=== PATIENT | female | born 2005 | race Hispanic/Latino ===

== ENCOUNTER 2024-01-11 14:40 | Inpatient (IN) | payer MEDICAID, OTHER ==
[~2024-01-11 14:40] MED LIST: Bupivacaine 0.25% HCL 30 ML VIAL ONE
[2024-01-11 15:13] VITALS: BMI 30.2
[2024-01-11 16:05] LABS: Fetal Membranes Rupture RUPTURE DETECTED (No Rupture)
[2024-01-11] MEDS ORDERED: Lidocaine 1% (PF) 30 ML VIAL SC PRN (16:35)
[2024-01-11] MEDS ORDERED: Promethazine HCl 25 MG/ML VIAL IM PRN ×2 (16:35→19:34)
[2024-01-11] MEDS ORDERED: hydrALAZINE 20 MG/ML VIAL SLOW IVP PRN (16:35)
[2024-01-11] MEDS ORDERED: HYDROcodone/Acetaminophen 5/325 mg Tablet PO PRN (16:35)
[2024-01-11] MEDS ORDERED: Methylergonovine 0.2 MG/ML VIAL IM PRN (16:35)
[2024-01-11] MEDS ORDERED: Ibuprofen 800 MG TAB PO PRN (16:35)
[2024-01-11] MEDS ORDERED: Misoprostol 200 MCG TAB PR PRN (16:35)
[2024-01-11] MEDS ORDERED: Acetaminophen 500 MG TAB PO PRN (16:35)
[2024-01-11] MEDS ORDERED: Diphenoxylate HCl/Atropine Tablet PO PRN (16:35)
[2024-01-11] MEDS ORDERED: Tranexamic Acid 1,000 MG/10 ML VIAL IVP PRN (16:35)
[2024-01-11] MEDS ORDERED: fentaNYL 50 mcg/mL 1 mL Vial SLOW IVP PRN (16:35)
[2024-01-11] MEDS ORDERED: Ondansetron PF 4 MG/2 ML Vial IVP PRN ×2 (16:35→19:34)
[2024-01-11] MEDS ORDERED: Carboprost 250 MCG/ML AMP IM PRN (16:35)
[2024-01-11] MEDS ORDERED: Oxytocin 30 units/NS 500 ML 500 ML IV SCH (16:45)
[2024-01-11] MEDS ORDERED: Lactated Ringer's 1,000 ML IV SCH (16:45)
[2024-01-11 16:48] LABS: Hematocrit 38.8 % (34.9-44.5); Mean Corpuscular HGB CONC 33.5 g/dL (32.0-36.0); Mean Corpuscular Volume 86.6 fL (81.6-98.3); Platelet Count 230 10x3/uL (150-450); RBC Distribution Width 12.8 % (11.5-14.5); Red Blood Cell (RBC) Count 4.48 10x6/uL (3.90-5.03); White Blood Cell (WBC) Count 8.6 10x3/uL (3.5-10.5)
[2024-01-11 16:49] LABS: Mean Platelet Volume 9.9 fL (7.4-10.4)
[2024-01-11 17:20] LABS: Syphilis Antibody Nonreactive (Nonreactive); Syphilis Antibody Index 0.03 S/CO (<1.00 Non-Reactive)
[2024-01-11 17:22] LABS: HBsAg Index 0.19 S/CO (0-0.99); Hep B Surf Ag - L&D Non-Reactive S/CO (NonReactive)
[2024-01-11] MEDS ORDERED: ePHEDrine Sulfate 50 MG/10 ML VIAL SLOW IVP PRN (19:34)
[2024-01-11] MEDS ORDERED: Lactated Ringer's 500 ML IV PRN (19:34)
[2024-01-11] MEDS ORDERED: diphenhydrAMINE 50 MG/ML VIAL IVP PRN (19:34)
[2024-01-11] MEDS ORDERED: Naloxone HCl 0.4 mg/ml Vial IVP PRN ×2 (19:34)
[2024-01-11] MEDS ORDERED: Moisturizing Cream (Eucerin) 113 GM JAR TOP PRN (19:34)
[2024-01-11] MEDS: fentaNYL/Ropivacaine Epidural 100 ML ONE (19:35)
[2024-01-11] MEDS ORDERED: fentaNYL 2 mcg/Ropivacaine 0.2% Epidural 100 ML CADD EPIDURAL SCH (19:45)
[2024-01-11] MEDS ORDERED: ACTIVE EPIDURAL FS SCH (19:45)
[2024-01-11] MEDS: Oxytocin 30 units/NS 500 ML 500 ML IV SCH ×2 (20:34→23:28)
[2024-01-12] MEDS ORDERED: HYDROcodone/Acetaminophen 5/325 mg Tablet PO PRN (00:16)
[2024-01-12] MEDS ORDERED: Promethazine HCl 25 MG/ML VIAL IM PRN (00:16)
[2024-01-12] MEDS ORDERED: diphenhydrAMINE 25 MG CAP PO PRN (00:16)
[2024-01-12] MEDS ORDERED: Boostrix 0.5 ML (Tdap) VIAL (>/=7 yrs of age) IM ONE (00:16)
[2024-01-12] MEDS ORDERED: Ondansetron PF 4 MG/2 ML Vial IVP PRN (00:16)
[2024-01-12] MEDS ORDERED: Bisacodyl 10 MG SUPP PR PRN (00:16)
[2024-01-12] MEDS ORDERED: Milk Of Magnesia 30 ML UDCUP PO PRN (00:16)
[2024-01-12] MEDS ORDERED: Benzocaine-Menthol 82.5 ML CAN TOP PRN (00:16)
[2024-01-12] MEDS ORDERED: Lanolin Ointment 7 GM TUBE TOP PRN (00:16)
[2024-01-12] MEDS ORDERED: hydrALAZINE 20 MG/ML VIAL SLOW IVP PRN (00:16)
[2024-01-12] MEDS: Acetaminophen 325 MG TAB PO PRN (02:52)
[2024-01-12] MEDS: Ibuprofen 800 MG TAB PO SCH (05:40)
[2024-01-12] MEDS: Ferrous Sulfate 325 MG TAB PO SCH (07:53)
[2024-01-12] MEDS: Prenatal Vitamin 1 TAB PO SCH (07:54)
[2024-01-12] MEDS: Docusate 100 MG CAP PO SCH (07:54)
[2024-01-13 07:50] VITALS: BP 105/52; TEMP 98.2
[2024-01-13] MEDS: Measles/Mumps/Rubella 10 MCG/0.5 ML VIAL SC ONE (11:24)
== END 2024-01-13 11:55 | disposition home or self-care (01) | DRG 807 ==
LOC: CSHLD/OP 14:40 → CSHLD 16:02 → CSHPP 01-12 00:09
PROVIDERS: ADMIT Family Medicine; ATTEND Family Medicine
PROC: 10E0XZZ Delivery of Products of Conception, External Approach (ICD-10-PCS; principal; 2024-01-11)
PROC: 0KQM0ZZ Repair Perineum Muscle, Open Approach (ICD-10-PCS; 2024-01-11)
DX: O42.02 Full-term premature rupture of membranes, onset of labor within 24 hours of rupture (principal); Z37.0 Single live birth; Z3A.39 39 weeks gestation of pregnancy; O69.81X0 Labor and delivery complicated by cord around neck, without compression, not applicable or unspecified; O70.1 Second degree perineal laceration during delivery
CPT/HCPCS: 51702; 84112; 85027; 86780; 86850; 86900; 86901; 87340; 90707; 99285; J0665; J2590